=== PATIENT | female | born 1960 | race Hispanic/Latino ===

== ENCOUNTER 2018-01-08 20:35 | Emergency (ER) | payer OTHER ==
[~2018-01-08] VITALS: Ht 162.6 cm; Wt 77.1 kg
--- OUTSIDE RECORDS SUMMARY | 2018-01-08 20:38 | XMS REPORT ---
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 Active Problem HTN (hypertension), benign I10 Active Problem Venous insufficiency (chronic) (peripheral) I87.2 Active Assessment HTN (hypertension), benign I10 Active Assessment Type 1 diabetes mellitus without complication E10.9 Active Assessment Abnormal electrocardiogram R94.31 Active Assessment Encounter for preprocedural cardiovascular examination Z01.810 Active Medications Medication Code System Code Instructions Start Date End Date Status Dosage Ativan [facility] 97322154719 2 MG Orally take 1 hour before procedure Apr 29, 2017 Active take 2 tabkets Above the knee commpression stockings NDC 0 20-30mm Apr 30, 2017 Active as directed Results No Known Results Summary Purpose eClinicalWorks Submission
--- OUTSIDE RECORDS SUMMARY | 2018-01-08 20:38 | XMS REPORT ---
Author Author Pat Meier Organization [employer] Address Unknown Phone Unavailable Care Team Providers Care Picture Painter Name Role Phone Pat Meier CP Unavailable Allergies No Known Allergies Problems Problem Type Condition Code Onset Dates Condition Status Assessment Abnormal electrocardiogram R94.31 Active Assessment Encounter for preprocedural cardiovascular examination Z01.810 Active Problem HTN (hypertension), benign I10 Active Assessment HTN (hypertension), benign I10 Active Assessment Type 1 diabetes mellitus without complication E10.9 Active Medications No Known Medications Results No Known Results Summary Purpose eClinicalWorks Submission
--- OUTSIDE RECORDS SUMMARY | 2018-01-08 20:38 | XMS REPORT ---
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
--- OUTSIDE RECORDS SUMMARY | 2018-01-08 20:38 | XMS REPORT ---
Author Author Pat Meier Organization [employer] Address Unknown Phone Unavailable Care Team Providers Care Parts Counter Salesperson Name Role Phone Pat Meier CP Unavailable [...] Start Date End Date Status Dosage Ativan [facility] 84589665789 2 MG Orally take 1 hour before procedure Apr 29, 2017 Active take 2 tabkets Results No Known Results Summary Purpose eClinicalWorks Submission
--- OUTSIDE RECORDS SUMMARY | 2018-01-08 20:38 | XMS REPORT ---
Author Author Pat Meier Organization [employer] Address Unknown Phone Unavailable Care Team Providers Care Button Attaching Machine Operator Name Role Phone Pat Meier CP Unavailable [...] Start Date End Date Status Dosage Ativan [facility] 31022779745 2 MG Orally take 1 hour before procedure Apr 29, 2017 Active take 2 tabkets Above the knee commpression stockings NDC 0 20-30mm Apr 30, 2017 Active as directed Results No Known Results Summary Purpose eClinicalWorks Submission
--- OUTSIDE RECORDS SUMMARY | 2018-01-08 20:38 | XMS REPORT ---
Author Author Pat Meier Organization [employer] Address Unknown Phone Unavailable Care Team Providers Care Construction Recruiter Name Role Phone Pat Meier CP Unavailable Allergies, Adverse Reactions, Alerts Substance Reaction Event Type N.K.D.A. Info Not Available Non Drug Allergy Problems Problem Type Condition Code Onset Dates Condition Status Assessment Abnormal electrocardiogram R94.31 Active Assessment Encounter for preprocedural cardiovascular examination Z01.810 Active Problem HTN (hypertension), benign I10 Active Assessment HTN (hypertension), benign I10 Active Assessment Type 1 diabetes mellitus without complication E10.9 Active Medications Medication Code System Code Instructions Start Date End Date Status Dosage Telmisartan-HCTZ [facility] [address]-54 40-12.5 MG Orally Once a day Active 1 tablet Metformin HCl [facility] [address]-05 500 MG Orally Twice a day Active 1 tablet with meals Vital Signs Date/Time: August 27, 2016 BMI 43.74 Index Weight 224 lbs Height 5'4' in Cardiac Monitoring Heart Rate 63 /min Blood Pressure Diastolic 80 mm Hg Blood Pressure Systolic 132 mm Hg Results No Known Results Summary Purpose eClinicalWorks Submission
--- OUTSIDE RECORDS SUMMARY | 2018-01-08 20:38 | XMS REPORT ---
Author Author Pat Meier Organization [employer] Address Unknown Phone Unavailable Care Team Providers Care Plastic Sheets Supervisor Name Role Phone Pat Meier CP Unavailable [...] Date End Date Status Dosage Ativan [facility] 76377636166 2 MG Orally take 1 hour before procedure Apr 29, 2017 Active take 2 tabkets Above the knee commpression stockings NDC 0 20-30mm Apr 30, 2017 Active as directed Vital Signs Date/Time: June 23, 2017 BMI 33.39 Index Weight 171 lbs Height 5'4' in Cardiac Monitoring Heart Rate 64 /min Blood Pressure Diastolic 78 mm Hg Blood Pressure Systolic 140 mm Hg Results No Known Results Summary Purpose eClinicalWorks Submission
--- OUTSIDE RECORDS SUMMARY | 2018-01-08 20:38 | XMS REPORT ---
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
--- OUTSIDE RECORDS SUMMARY | 2018-01-08 20:38 | XMS REPORT | Continuity of Care Document ---
Author Author [facility] Interface Address Unknown Phone Unavailable Problems Problem Status Onset Date Classification Date Reported Comments Source Varicose veins of bilateral lower extremities with other complications Active Diagnosis 06/25/2017 [facility] Venous insufficiency (peripheral) Active Diagnosis 06/25/2017 [facility] HTN , benign Active Problem 06/25/2017 [facility] Type 1 diabetes mellitus without complication Active Diagnosis 06/25/2017 [facility] Abnormal electrocardiogram Active Diagnosis 06/25/2017 [facility] Encounter for preprocedural cardiovascular examination Active Diagnosis 06/25/2017 [facility] Medications Medication Details Route Status Patient Instructions Ordering Provider Order Date Source Above the knee commpression stockings as directed NA Active 20- 30mm Renea 04/30/2017 [facility] Ativan take 2 tabkets Orally Active 2 MG Orally take 1 hour before procedure Renea 04/29/2017 [facility] Telmisartan-HCTZ 1 tablet Orally Active 40-12.5 MG Orally Once a day [facility] Metformin HCl 1 tablet with meals Orally Active 500 MG Orally Twice a day [facility] Telmisartan-HCTZ 1 tablet Orally Active 40-12.5 MG Orally Once a day [facility] Metformin HCl 1 tablet with meals Orally Active 500 MG Orally Twice a day [facility] Allergies, Adverse Reactions, Alerts Substance Category Reaction Severity Reaction type Status Date Reported Comments Source N.K.D.A. Adverse Reaction Info Not Available Adverse Reaction Active 06/23/2017 [facility] Immunizations Immunization Date Given Site Status Last Updated Comments Source Results Order Name Results Value Reference Range Date Interpretation Comments Source Vital Signs Vital Sign Value Date Comments Source Weight 171 06/23/2017 [facility] Heart Rate 64 06/23/2017 [facility] Diastolic (mm Hg) 78 06/23/2017 [facility] Systolic (mm Hg) 140 06/23/2017 [facility] Weight 176 04/02/2017 [facility] Heart Rate 67 04/02/2017 [facility] Diastolic (mm Hg) 62 04/02/2017 [facility] Systolic (mm Hg) 122 04/02/2017 [facility] Weight 182 02/13/2017 [facility] Heart Rate 66 02/13/2017 [facility] Diastolic (mm Hg) 62 02/13/2017 [facility] Systolic (mm Hg) 118 02/13/2017 [facility] Weight 219 10/14/2016 [facility] Heart Rate 66 10/14/2016 [facility] Diastolic (mm Hg) 78 10/14/2016 [facility] Systolic (mm Hg) 142 10/14/2016 [facility] Weight 224 08/27/2016 [facility] Heart Rate 63 08/27/2016 [facility] Diastolic (mm Hg) 80 08/27/2016 [facility] Systolic (mm Hg) 132 08/27/2016 [facility] Encounters Location Location Details Encounter Type Encounter Number Reason For Visit Attending Provider ADM Date DC Date Status Source Procedures Procedure Code Date Perfomer Comments Source
--- OUTSIDE RECORDS SUMMARY | 2018-01-08 20:38 | XMS REPORT ---
Author Author Pat Meier Organization [employer] Address Unknown Phone Unavailable Care Team Providers Care Chiropractic Teacher Name Role Phone Pat Meier CP Unavailable [...] Start Date End Date Status Dosage Telmisartan-HCTZ [facility] 21934476951 40-12.5 MG Orally Once a day Active 1 tablet Metformin HCl [facility] 62165863692 500 MG Orally Twice a day Active 1 tablet with meals Vital Signs Date/Time: Feb 13, 2017 BMI 35.54 Index Weight 182 lbs Height 5'4' in Cardiac Monitoring Heart Rate 66 /min Blood Pressure Diastolic 62 mm Hg Blood Pressure Systolic 118 mm Hg Results No Known Results Summary Purpose eClinicalWorks Submission
--- OUTSIDE RECORDS SUMMARY | 2018-01-08 20:38 | XMS REPORT ---
Author Author Pat Meier Organization [employer] Address Unknown Phone Unavailable Care Team Providers Care Aircraft Engine Mechanic Supervisor Name Role Phone Pat Meier CP [...] Date End Date Status Dosage Ativan [facility] 47351095217 2 MG Orally take 1 hour before procedure Apr 29, 2017 Active take 2 tabkets Above the knee commpression stockings NDC 0 20-30mm Apr 30, 2017 Active as directed Results No Known Results Summary Purpose eClinicalWorks Submission
--- OUTSIDE RECORDS SUMMARY | 2018-01-08 20:38 | XMS REPORT ---
Author Author Pat Meier Organization [employer] Address Unknown Phone Unavailable Care Team Providers Care Rehab Technician Name Role Phone Pat Meier CP Unavailable [...]
--- OUTSIDE RECORDS SUMMARY | 2018-01-08 20:38 | XMS REPORT ---
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
--- OUTSIDE RECORDS SUMMARY | 2018-01-08 20:38 | XMS REPORT ---
Author Author Pat Meier Organization [employer] Address Unknown Phone Unavailable Care Team Providers Care Dredge Operator Name Role Phone Pat Meier CP [...] Instructions Start Date End Date Status Dosage Metformin HCl [facility] 65684440745 500 MG Orally Twice a day Active 1 tablet with meals Telmisartan-HCTZ [facility] 36901066363 40-12.5 MG Orally Once a day Active 1 tablet Vital Signs Date/Time: Apr 02, 2017 BMI 34.37 Index Weight 176 lbs Height 5'4' in Cardiac Monitoring Heart Rate 67 /min Blood Pressure Diastolic 62 mm Hg Blood Pressure Systolic 122 mm Hg Results No Known Results Summary Purpose eClinicalWorks Submission
--- OUTSIDE RECORDS SUMMARY | 2018-01-08 20:38 | XMS REPORT ---
Author Author Pat Meier Organization [employer] Address Unknown Phone Unavailable Care Team Providers Care Companion Name Role Phone Pat Meier CP Unavailable [...] Date End Date Status Dosage Telmisartan-HCTZ [facility] [address]-15 40-12.5 MG Orally Once a day Active 1 tablet Metformin HCl [facility] [address]-86 500 MG Orally Twice a day Active 1 tablet with meals Vital Signs Date/Time: Oct 14, 2016 BMI 42.77 Index Weight 219 lbs Height 5'4' in Cardiac Monitoring Heart Rate 66 /min Blood Pressure Diastolic 78 mm Hg Blood Pressure Systolic 142 mm Hg Results No Known Results Summary Purpose eClinicalWorks Submission
--- OUTSIDE RECORDS SUMMARY | 2018-01-08 20:38 | XMS REPORT ---
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
[2018-01-08] MEDS ORDERED: SODIUM CHLORIDE 0.9% 1000ML 1,000 ML IV STA (21:23)
[2018-01-08] MEDS ORDERED: ASPIRIN 81 MG CHEW TAB PO ONE (21:30)
[2018-01-08] MEDS ORDERED: MORPHINE SULFATE INJ 4 MG/ML INJ IV ONE (21:30)
[2018-01-08] MEDS ORDERED: ONDANSETRON HCL INJ 2 MG/ML VIAL IV ONE (21:40)
[2018-01-08 22:24] LABS: BASOPHILS % 0.2 % (0.0-1.0); EOSINOPHILS # (AUTO) 0.2 (0.0-0.4); EOSINOPHILS % 1.9 % (0.0-6.0); HEMATOCRIT 44.6 % (34.2-44.1); HEMOGLOBIN 14.4 g/dL (12.0-16.0); LYMPHOCYTES # (AUTO) 2.2 (1.0-3.2); LYMPHOCYTES % 17.7 % (18.0-39.1); MEAN CORPUSCULAR HEMOGLOBIN 29.4 pg (28-32); MEAN CORPUSCULAR HGB CONC 32.3 g/dL (31-35); MEAN CORPUSCULAR VOLUME 91.2 fL (81-99); MONOCYTES # (AUTO) 0.6 (0.2-0.8); MONOCYTES % 4.6 % (4.4-11.3); NEUTROPHILS # (AUTO) 9.2 (2.1-6.9); NEUTROPHILS % 75.3 % (38.7-80.0); PLATELET COUNT 161 x10e3/uL (140-360); RED BLOOD COUNT 4.89 x10e6/uL (3.6-5.1)
[2018-01-08 22:33] LABS: CLARITY,URINE HAZY (CLEAR); COLOR,URINE YELLOW (YELLOW)
[2018-01-08 22:34] LABS: BILIRUBIN,URINE NEGATIVE (NEGATIVE); KETONES,URINE NEGATIVE (NEGATIVE); LEUKOCYTE ESTERASE ,URINE NEGATIVE (NEGATIVE); NITRITE,URINE NEGATIVE (NEGATIVE); PROTEIN,URINE DIPSTICK NEGATIVE (NEGATIVE); URINE UROBILINOGEN 0.2 mg/dL (0.2 - 1)
[2018-01-08 22:37] LABS: AMORPHOUS SEDIMENT,URINE FEW (FEW); BACTERIA,URINE FEW /HPF; EPITHELIAL CELLS,URINE FEW /LPF; RBC,URINE 0-5 /HPF (0-5); WBC,URINE (MAN) 0-5 /HPF (0-5)
[2018-01-08 22:40] LABS: ALANINE AMINOTRANSFERASE 21 IU/L (0-55); ALBUMIN 4.5 g/dL (3.5-5.0); ALBUMIN/GLOBULIN RATIO 1.6 (0.8-2.0); ALKALINE PHOSPHATASE 64 IU/L (40-150); ANION GAP 17.8 mmol/L (8-16); BLOOD UREA NITROGEN 14 mg/dL (7-26); BUN/CREATININE RATIO 16 (6-25); CALCIUM 9.9 mg/dL (8.4-10.2); CARBON DIOXIDE 26 mmol/L (22-29); CHLORIDE 104 mmol/L (98-107); CREATINE KINASE 107 IU/L (29-168); CREATININE, SERUM 0.89 mg/dL (0.57-1.11); EST GLOMERULAR FILTRATION RATE > 60 ML/MIN (60-); GLUCOSE 155 mg/dL (74-118); LIPASE 46 U/L (8-78); POTASSIUM 3.8 mmol/L (3.5-5.1); SODIUM 144 mmol/L (136-145)
[2018-01-08] MEDS ORDERED: IOPAMIDOL 370 MG/ML 200 ML INFUS..BTL INJ ONE (23:26)
[2018-01-08] MEDS ORDERED: SODIUM CHLORIDE 0.9% 50ML 50 ML ONE (23:26)
--- NOTE | 2018-01-09 00:02 | Diagnostic Imaging Report ---
EXAM: CT ABDOMEN AND PELVIS with IV CONTRAST INDICATION: Right upper quadrant epigastric pain COMPARISON: None TECHNIQUE: The abdomen and pelvis were scanned using a multidetector helical scanner. Coronal and sagittal reformations were obtained. Dose modulation, iterative reconstruction, and/or weight based adjustment of the mA/kV was utilized to reduce the radiation dose to as low as reasonably achievable. Routine protocol performed. IV Contrast: 100 cc Isovue 370 Oral Contrast: Water FINDINGS: LOWER THORAX: No consolidations LIVER: Subcentimeter hypodensities consistent with cysts. BILIARY: The gallbladder is unremarkable. No ductal dilation. SPLEEN: No masses PANCREAS: No masses ADRENALS: No nodules KIDNEYS: Symmetric perfusion. No enhancing masses. No hydronephrosis. GI TRACT: No distention, wall thickening or evidence of obstruction. Surgical changes of the stomach. Normal appendix. VESSELS: Unremarkable PERITONEUM/RETROPERITONEUM: No free air or fluid LYMPH NODES: No lymphadenopathy REPRODUCTIVE ORGANS: Endometrial canal thickening to 1.2 cm. BLADDER: Unremarkable SOFT TISSUES: Unremarkable BONES: No suspicious bone lesions. IMPRESSION: 1. No CT findings to explain patient's symptoms. 2. Thickened endometrium for a postmenopausal female. A nonemergent pelvic ultrasound is recommended as follow-up. Signed by: Dr. Deena Barney M.D. on 01/08/2018 11:59 PM
[2018-01-09] MEDS ORDERED: KETOROLAC TROMETHAMINE 30 MG/ML VIAL ONE (01:08)
[2018-01-09] MEDS ORDERED: ACETAMINOPHEN 325 MG TAB ONE (01:08)
[2018-01-09] MEDS ORDERED: LIDOCAINE VISC 2% SOLN 15 ML UDC ONE (01:08)
[2018-01-09] MEDS ORDERED: BELLADONNA ALK/PHENOBARBITAL 5 ML UDC ONE (01:09)
[2018-01-09] MEDS ORDERED: MAGNESIUM/ALUMINUM/SIMETHICONE 30 ML UDC ONE (01:09)
[2018-01-09] MEDS ORDERED: CLONIDINE HCL 0.1 MG TAB ONE (01:15)
[2018-01-09] MEDS ORDERED: KETOROLAC TROMETHAMINE 30 MG/ML VIAL IV STA (01:18)
[2018-01-09] MEDS ORDERED: CLONIDINE HCL 0.1 MG TAB PO ONE (01:30)
[2018-01-09] MEDS ORDERED: ACETAMINOPHEN 325 MG TAB PO ONE (01:30)
[2018-01-09 01:55] VITALS: BP 153/84
[2018-01-09] MEDS ORDERED: DONNATAL/LIDOCAINE/MAALOX 30 ML SUSP PO ONE (09:00)
== END 2018-01-09 01:56 | disposition home or self-care (01) ==
LOC: ER 20:35
DX: R10.13 Epigastric pain (principal); R11.2 Nausea with vomiting, unspecified
CPT/HCPCS: 36415; 74177; 80053; 81001; 82550; 82553; 83690; 84484; 85025; 96374; 99284; J1885; J2405; J7030; Q9967; J2270

== ENCOUNTER 2018-02-04 11:05 | Inpatient (IN) | payer OTHER ==
[2018-01-28 13:16] LABS: BASOPHILS % 0.4 % (0.0-1.0); EOSINOPHILS # (AUTO) 0.2 (0.0-0.4); EOSINOPHILS % 2.6 % (0.0-6.0); HEMATOCRIT 41.1 % (34.2-44.1); HEMOGLOBIN 12.7 g/dL (12.0-16.0); LYMPHOCYTES # (AUTO) 2.1 (1.0-3.2); LYMPHOCYTES % 26.6 % (18.0-39.1); MEAN CORPUSCULAR HGB CONC 30.9 g/dL (31-35); MEAN CORPUSCULAR VOLUME 93.8 fL (81-99); MONOCYTES # (AUTO) 0.6 (0.2-0.8); NEUTROPHILS # (AUTO) 4.9 (2.1-6.9); PLATELET COUNT 212 x10e3/uL (140-360); RED BLOOD COUNT 4.38 x10e6/uL (3.6-5.1); RED CELL DISTRIBUTION WIDTH 12.9 % (11.7-14.4)
[2018-01-28 13:35] LABS: ALANINE AMINOTRANSFERASE 28 IU/L (0-55); ALBUMIN 3.7 g/dL (3.5-5.0); ALBUMIN/GLOBULIN RATIO 1.1 (0.8-2.0); ALKALINE PHOSPHATASE 71 IU/L (40-150); ANION GAP 14.4 mmol/L (8-16); BLOOD UREA NITROGEN 10 mg/dL (7-26); BUN/CREATININE RATIO 14 (6-25); CALCIUM 10.4 mg/dL (8.4-10.2); CARBON DIOXIDE 31 mmol/L (22-29); CHLORIDE 107 mmol/L (98-107); CREATININE, SERUM 0.73 mg/dL (0.57-1.11); EST GLOMERULAR FILTRATION RATE > 60 ML/MIN (60-); GLUCOSE 98 mg/dL (74-118); POTASSIUM 4.4 mmol/L (3.5-5.1); SODIUM 148 mmol/L (136-145)
[~2018-02-04] VITALS: Ht 162.6 cm; Wt 78.0 kg
--- OUTSIDE RECORDS SUMMARY | 2018-02-04 11:11 | XMS REPORT ---
Author [facility] Address Unknown Phone Unavailable Care Team Providers Care Industrial Maintenance Technician Name Role Phone Kristin ESPOSITO Unavailable Unavailable Problems This patient has no known problems. Allergies, Adverse Reactions, Alerts This patient has no known allergies or adverse reactions. Medications This patient has no known medications. Results Test Description Test Time Test Comments Text Results Atomic Results Result Comments CT ABDOMEN/PELVIS W 2018-01-08 23:46:00 [place] [address] Patient Name: JESU SHELDON MR #: [id number] : 1960 Age/Sex: 57/F Req #: [id number] [facility] Physician: Ordered by: PADDY ESPOSITO MD Report #: [id number] Location: ER Room/Bed: Procedure: [id number] CT/CT ABDOMEN/PELVIS W Exam Date: 01/08/18 Exam Time: 2334 REPORT STATUS: Signed EXAM: CT ABDOMEN AND PELVIS with IV CONTRAST INDICAT ION: Right upper quadrant epigastric pain COMPARISON: None TECHNIQUE: The abdomen and pelvis were scanned using a multidetector helical scanner. Coronal and sagittal reformations were obtained. Dose modulation, iterative reconstruction, and/or weight based adjustment of the mA/kV was utilized to reduce the radiation dose to as low as reasonably achievable. Routine protocol performed. IV Contrast: 100 cc Isovue 370 Oral Contrast: Water FINDINGS: LOWER THORAX: No consolidations LIVER: Subcentimeter hypodensities consistent with cysts. BILIARY: The gallbladder is unremarkable. No ductal dilation. SPLEEN: No masses PANCREAS: No masses ADRENALS: No nodules KIDNEYS: Symmetric perfusion. No enhancing masses. No hydronephrosis. GI TRACT: No distention, wall thickening or evidence of obstruction. Surgical changes of the stomach. Normal appendix. VESSELS: Unremarkable PERITONEUM/RETROPERITONEUM: No free air or fluid LYMPH NODES: No lymphadenopathy REPRODUCTIVE ORGANS: Endometrial canal thickening to 1.2 cm. BLADDER: Unremarkable SOFT TISSUES: Unremarkable BONES: No suspicious bone lesions. IMPRESSION: 1. No CT findings to explain patient's symptoms. 2. Thickened endometrium for a postmenopausal female. A nonemergent pelvic ultrasound is recommended as follow-up. Signed by: Dr. Eric Barney M.D. on 01/08/2018 11:59 PM Dictated By: ERIC BARNEY MD [id number] Transcribed By: CLIFF on 01/08/18 6731 COPY TO: PADDY ESPOSITO MD
--- OUTSIDE RECORDS SUMMARY | 2018-02-04 11:11 | XMS REPORT | Continuity of Care Document ---
Author Author [facility] Interface Address Unknown Phone Unavailable Problems Problem Status Onset Date Classification Date Reported Comments Source Abnormal electrocardiogram Active Diagnosis 06/25/2017 [facility] Encounter for preprocedural cardiovascular examination Active Diagnosis 06/25/2017 [facility] HTN , benign Active Problem 06/25/2017 [facility] Type 1 diabetes mellitus without complication Active Diagnosis 06/25/2017 [facility] Varicose veins of bilateral lower extremities with other complications Active Diagnosis 06/25/2017 [facility] Venous insufficiency (peripheral) Active Diagnosis 06/25/2017 [facility] Medications Medication [...]
[2018-02-04] MEDS ORDERED: CEFOXITIN SOD 1 GM VIAL ONE (11:39)
[2018-02-04] MEDS ORDERED: BUPIVACAINE 0.25%/EPI 30ML SDV INJ ONE (13:35)
[2018-02-04] MEDS ORDERED: HYDROMORPHONE 1MG/1ML INJ IV PRN (17:30)
[2018-02-04] MEDS: LACTATED RINGER'S 1,000 ML IV SCH ×2 (17:30→23:58)
[2018-02-04] MEDS ORDERED: FENTANYL CITRATE/PF 100MCG/2 ML INJ ONE ×2 (17:38→19:35)
[2018-02-04] MEDS ORDERED: ONDANSETRON HCL INJ 2 MG/ML VIAL ONE ×2 (17:40→19:35)
[2018-02-04] MEDS ORDERED: METOCLOPRAMIDE HCL 10 MG/2ML VIAL ONE (17:40)
[2018-02-04] MEDS ORDERED: HYDROMORPHONE 2MG/ML 2 MG/ML ML IV PRN (17:45)
[2018-02-04] MEDS ORDERED: MEPERIDINE HCL INJ 50 MG/ML INJ ONE (17:53)
[2018-02-04] MEDS ORDERED: CEFOXITIN SOD 1 GM VIAL IV SCH (18:00)
[2018-02-04] MEDS ORDERED: CEFOXITIN 1GM/ NS 50ML 50 ML IV SCH (18:00)
[2018-02-04 18:35] VITALS: BP 166/85
--- NOTE | 2018-02-04 18:51 | Operative Report ---
DATE OF PROCEDURE: February 04, 2018 PREOPERATIVE DIAGNOSIS: Cholelithiasis and cholecystitis. POSTOPERATIVE DIAGNOSIS: Acute cholecystitis. OPERATIVE PROCEDURE: Laparoscopic cholecystectomy. ANESTHESIA: General endotracheal. INDICATIONS: The patient is a 57-year-old female with recurrent epigastric abdominal pain with ultrasound showing sludge and HIDA scan showed nonvisualization of the gallbladder. Patient consented for gallbladder removal by laparoscopy, possible open with all attendant risks discussed including bleeding, infection and organ injury. PROCEDURE FINDINGS: Multiple small gallstone with acute cholecystitis. DESCRIPTION OF PROCEDURE: The patient was brought to the OR and intubated. Abdomen prepped with alcohol and draped in sterile fashion. An infraumbilical incision is made and a 10-mm port inserted. Insufflation then begun. Under direct vision, other port sites placed in the mid-epigastric and right upper quadrant. Gallbladder covered by omentum, and this is bluntly dissected off. A very acutely inflamed gallbladder with distention requiring decompression first with a needle. The fundus was retracted in the cephalad direction, and the neck of the gallbladder retracted laterally. Due to severe inflammation at the neck of the gallbladder, we proceeded to remove the gallbladder fundus from the liver in a retrograde fashion, working from the fundus down toward the neck of the gallbladder where the cystic duct is identified and controlled with an Endo loop, 0 PDS and the cystic duct is divided above the loops tied. The gallbladder contained multiple small to medium sized mulberry stones, at least 100 or more, which were all removed along with the gallbladder in an Endo pouch out of the peritoneal cavity, which was then irrigated. Hemostasis achieved and a 19-[place] Armando drain was placed in the Mason pouch and taken out through right upper quadrant port site. All ports removed under direct vision. Fascial closure with 0 Vicryl. Skin closed with subcuticular stitch. Patient was extubated and transported to the recovery room. Estimated blood loss 10 mL. Job#: [id number]
[2018-02-04] MEDS ORDERED: LIDOCAINE HCL 2% LOCAL INJ 5 ML SDV VIAL INJ ONE (19:35)
[2018-02-04] MEDS ORDERED: ROCURONIUM BROMIDE 10 MG/ML 5ML VIAL ONE (19:35)
[2018-02-04] MEDS ORDERED: MIDAZOLAM HCL 2 MG/2 ML VIAL ONE (19:35)
[2018-02-04] MEDS ORDERED: DEXAMETHASONE SOD PHOS INJ 4 MG/ML VIAL ONE (19:35)
[2018-02-04] MEDS ORDERED: PROPOFOL IV EMULSION 10 MG/ML 20 ML VIAL ONE (19:35)
[2018-02-04] MEDS ORDERED: SEVOFLURANE INHAL SOLN 250 ML PEN BTL ONE (19:35)
[2018-02-04 20:00] VITALS: BP 134/73
[2018-02-04 20:05] VITALS: BP 134/73
[2018-02-04] MEDS: CEFOXITIN SOD 1 GM VIAL IV SCH (20:10)
[2018-02-04] MEDS: HYDROMORPHONE 2MG/ML 2 MG/ML ML IV PRN (20:15)
[2018-02-04 23:15] VITALS: BP 134/73
[2018-02-05] VITALS (8 sets, daily range): BP systolic 132–150; BP diastolic 79–84
[2018-02-05] MEDS: CEFOXITIN SOD 1 GM VIAL IV SCH ×5 (00:48→23:47)
[2018-02-05] MEDS: ONDANSETRON HCL INJ 2 MG/ML VIAL IV PRN ×5 (00:48→23:47)
[2018-02-05] MEDS: HYDROMORPHONE 2MG/ML 2 MG/ML ML IV PRN ×2 (04:46→10:15)
[2018-02-05 05:56] LABS: BASOPHILS % 0.1 % (0.0-1.0); EOSINOPHILS % 0.1 % (0.0-6.0); HEMATOCRIT 38.5 % (34.2-44.1); HEMOGLOBIN 12.6 g/dL (12.0-16.0); LYMPHOCYTES # (AUTO) 1.7 (1.0-3.2); LYMPHOCYTES % 11.5 % (18.0-39.1); MEAN CORPUSCULAR HEMOGLOBIN 29.6 pg (28-32); MEAN CORPUSCULAR HGB CONC 32.7 g/dL (31-35); MEAN CORPUSCULAR VOLUME 90.4 fL (81-99); MONOCYTES # (AUTO) 0.9 (0.2-0.8); MONOCYTES % 6.1 % (4.4-11.3); NEUTROPHILS # (AUTO) 11.8 (2.1-6.9); NEUTROPHILS % 81.9 % (38.7-80.0); PLATELET COUNT 187 x10e3/uL (140-360); RED BLOOD COUNT 4.26 x10e6/uL (3.6-5.1); RED CELL DISTRIBUTION WIDTH 13.2 % (11.7-14.4)
[2018-02-05 06:28] LABS: ALANINE AMINOTRANSFERASE 35 IU/L (0-55); ALBUMIN 3.6 g/dL (3.5-5.0); ALBUMIN/GLOBULIN RATIO 1.2 (0.8-2.0); ALKALINE PHOSPHATASE 62 IU/L (40-150); ANION GAP 13.1 mmol/L (8-16); BLOOD UREA NITROGEN 12 mg/dL (7-26); BUN/CREATININE RATIO 17 (6-25); CALCIUM 9.6 mg/dL (8.4-10.2); CARBON DIOXIDE 25 mmol/L (22-29); CHLORIDE 102 mmol/L (98-107); CREATININE, SERUM 0.69 mg/dL (0.57-1.11); EST GLOMERULAR FILTRATION RATE > 60 ML/MIN (60-); GLUCOSE 164 mg/dL (74-118); POTASSIUM 4.1 mmol/L (3.5-5.1); SODIUM 136 mmol/L (136-145)
--- NOTE | 2018-02-05 10:55 | Consultation ---
DATE OF CONSULTATION: PCP: Dr. Berto Hernandez CHIEF COMPLAINT: Acute cholecystitis. Patient is status post laparoscopic cholecystectomy. SUMMARY: Patient is a 57-year-old female with acute cholecystitis. The patient had some abdominal pain early in January, but she did not think that it was from the gallbladder and ongoing pain. The patient also developed nausea and vomiting. Patient subsequently underwent cholecystectomy by Dr. Evan Mccormick. The patient is stable at this time. She is comfortable. She does have a drain in place. The patient had no chest pain and no shortness of breath. PAST MEDICAL HISTORY: Noncontributory. SOCIAL HISTORY: Patient does not smoke or use alcohol. No recreational drug use. ALLERGIES: MORPHINE. HOME MEDICATIONS: Not available. REVIEW OF SYSTEMS: Some pain postop appropriately. No nausea or vomiting. PHYSICAL EXAMINATION: VITAL SIGNS: Temperature is 97, blood pressure 150/81, pulse rate is 91, respirations 18. GENERAL: The patient is not in acute distress. She is awake. HEENT: Normocephalic, atraumatic and anicteric. NECK: Supple grossly. PULMONARY: Diminished breath sounds without any wheezing or rales. CARDIOVASCULAR: S1 and S2. Regular rate and rhythm. ABDOMEN: Status post laparoscopic cholecystectomy. Drain in place. EXTREMITIES: No cyanosis or edema. NEUROLOGIC: No gross focal deficits. LABORATORY: Sodium is 136, potassium 4.5, chloride 102, bicarb 25, BUN 12, creatinine 0.6, glucose 164. WBC is 14.4, hemoglobin 12.6, hematocrit 38.5, and platelets are 187,000. IMPRESSION 1. Status post laparoscopic cholecystectomy. 2. Acute cholecystitis. 3. Slight elevation of blood sugar: Will monitor. 4. Slight increase in white blood cells: Will monitor. PLAN: Continue with current fluid intake and bariatric clear liquids. Increase activity as tolerated. Incentive spirometry. Monitor the BRIDGET tube output. Repeat lab work in the morning. Job#: [id number] [place]
[2018-02-05] MEDS: LACTATED RINGER'S 1,000 ML IV SCH (12:30)
[2018-02-05] MEDS: HYDROCODONE/APAP 7.5MG-325MG 1 EA TAB PO PRN ×2 (14:56→19:20)
[2018-02-06] VITALS (7 sets, daily range): BP systolic 123–151; BP diastolic 71–83
[2018-02-06] MEDS: LACTATED RINGER'S 1,000 ML IV SCH ×2 (00:15→12:07)
[2018-02-06] MEDS: CEFOXITIN SOD 1 GM VIAL IV SCH ×4 (05:30→23:29)
[2018-02-06] MEDS: ONDANSETRON HCL INJ 2 MG/ML VIAL IV PRN ×3 (05:30→21:53)
[2018-02-06 05:52] LABS: BASOPHILS % 0.1 % (0.0-1.0); EOSINOPHILS # (AUTO) 0.2 (0.0-0.4); HEMATOCRIT 36.8 % (34.2-44.1); HEMOGLOBIN 11.7 g/dL (12.0-16.0); LYMPHOCYTES # (AUTO) 1.9 (1.0-3.2); LYMPHOCYTES % 25.4 % (18.0-39.1); MEAN CORPUSCULAR HEMOGLOBIN 29.3 pg (28-32); MEAN CORPUSCULAR HGB CONC 31.8 g/dL (31-35); MONOCYTES # (AUTO) 0.7 (0.2-0.8); MONOCYTES % 9.8 % (4.4-11.3); NEUTROPHILS # (AUTO) 4.6 (2.1-6.9); NEUTROPHILS % 62.4 % (38.7-80.0); PLATELET COUNT 152 x10e3/uL (140-360); RED CELL DISTRIBUTION WIDTH 13.3 % (11.7-14.4)
[2018-02-06 06:16] LABS: ANION GAP 12.9 mmol/L (8-16); BLOOD UREA NITROGEN 8 mg/dL (7-26); BUN/CREATININE RATIO 10 (6-25); CALCIUM 9.2 mg/dL (8.4-10.2); CARBON DIOXIDE 27 mmol/L (22-29); CHLORIDE 105 mmol/L (98-107); CREATININE, SERUM 0.79 mg/dL (0.57-1.11); EST GLOMERULAR FILTRATION RATE > 60 ML/MIN (60-); GLUCOSE 90 mg/dL (74-118); POTASSIUM 3.9 mmol/L (3.5-5.1); SODIUM 141 mmol/L (136-145)
[2018-02-06] MEDS: HYDROCODONE/APAP 7.5MG-325MG 1 EA TAB PO PRN ×4 (08:09→21:53)
[2018-02-07] VITALS: BP 122/60
[2018-02-07] MEDS: HYDROCODONE/APAP 7.5MG-325MG 1 EA TAB PO PRN ×2 (02:48→09:53)
[2018-02-07 04:00] VITALS: BP 123/60
[2018-02-07] MEDS: ONDANSETRON HCL INJ 2 MG/ML VIAL IV PRN ×2 (05:26→12:09)
[2018-02-07] MEDS: CEFOXITIN SOD 1 GM VIAL IV SCH ×2 (05:26→12:09)
[2018-02-07 07:52] VITALS: BP 115/65
[2018-02-07 09:54] VITALS: BP 115/65
[2018-02-07] MEDS ORDERED: NORCO 7.5-3251 EACH PO (10:32)
[2018-02-07] MEDS ORDERED: LEVAQUIN500 MG PO (10:33)
[2018-02-07] MEDS ORDERED: ZOFRAN4 MG PO (10:34)
[2018-02-07 11:48] VITALS: BP 142/78
--- NOTE | 2018-02-07 23:59 | Discharge Summary ---
NO DICTATION (00:16) Job#: [id number] [facility]
--- NOTE | 2018-02-09 09:19 | Discharge Summary ---
PRIMARY CARE PHYSICIAN: Dr. Marcy Muñoz. MOVIE STUNT PERFORMER: Dr. Jair Castro. FINAL DIAGNOSES 1. Acute cholecystitis. 2. Status post laparoscopic cholecystectomy. 3. Pain, improved. 4. Fever, resolved. SUMMARY: A 57-year-old female with acute cholecystitis. Patient came in with gallbladder stone associated with significant infection. Patient placed on antibiotics and subsequently underwent laparoscopic cholecystectomy. Patient is doing much better now. She is stable. WBC was elevated on admission but now is 7.4. Hemoglobin and hematocrit are stable at 11.7 and 36.8 respectively. BUN and creatinine 8 and 0.8 respectively. Patient is stable. She had a BRIDGET tube in place. She tolerated all her diet. The patient will go home on Levaquin 5 mg daily for 5 days, [place] 7.5/325 mg q.6h. as needed for pain, Zofran 4 mg sublingual q.4h. p.r.n. for nausea and vomiting, and Colace 1 mg twice a day. Patient is stable. Follow up with Dr. Evan Mccormick next week for BRIDGET tube removal. Patient is stable, discharge home today. Job#: [id number] AVIS CC:DR. MARCY MUÑOZ
== END 2018-02-07 12:54 | disposition home or self-care (01) | DRG 419 ==
LOC: OR 11:05 → PACU V 17:34 → MED/SURG 18:19
PROVIDERS: ADMIT Surgery; ATTEND Surgery
PROC: 0FT44ZZ Resection of Gallbladder, Percutaneous Endoscopic Approach (ICD-10-PCS; principal; 2018-02-04 14:57)
DX: K80.00 Calculus of gallbladder with acute cholecystitis without obstruction (principal); Z88.5 Allergy status to narcotic agent; Z98.84 Bariatric surgery status; Z83.3 Family history of diabetes mellitus; Z82.49 Family history of ischemic heart disease and other diseases of the circulatory system; R50.9 Fever, unspecified
CPT/HCPCS: 36415; 80048; 80053; 85025; 88304; 93005; J0694; J1100; J2001; J2175; J2250; J2405; J2765; J7120

== ENCOUNTER → 2018-02-25 | Outpatient (CLI) | payer OTHER ==
[~2018-02-25] MED LIST: LEVAQUIN500 MG PO; NORCO 7.5-3251 EACH PO; ZOFRAN4 MG PO
--- NOTE | 2018-02-25 11:01 | Diagnostic Imaging Report ---
EXAM: DXA BONE DENSITY INDICATIONS: Menopause COMPARISON: None. FINDINGS: Proximal left femur bone mineral density (BMD) (g/cm2):0.862 Femur T-score (standard deviation relative to young adult mean BMD): -0.7 Femur Z-score (standard deviation relative to age-matched control group):0.1 Lumbar bone mineral density (BMD) (g/cm2):0.971 Lumbar T-score (standard deviation relative to young adult mean BMD): -0.7 Lumbar Z-score (standard deviation relative to age-matched control group):0.6 Change since prior exam (%): Femur:Not applicable. Spine:Not applicable. Change since oldest prior exam (%): Femur:Not applicable. Spine:Not applicable. CONCLUSION: 1. Bone mineral density in the left femur is classified as normal. Fracture risk is not increased. 2. Bone mineral density in the spine is classified as normal. Fracture risk is not increased. World Health Organization Classification: *The Z-score is provided for informational purposes. The T-score is preferable for clinical decisions. When comparing exams, a change of >4% is considered statistically significant. SUGGESTED RECOMMENDATIONS: Normal & Osteopenia:Consideration should be given to use of calcium supplementation, daily multiple vitamins and adequate exercise, as preventive measures against osteoporosis, if clinically indicated. Osteoporosis & Severe Osteoporosis:In addition to the above, consideration should be given to medical therapy against osteoporosis, if clinically indicated. Constantin Onofre D.O. Dictated by: Constantin Onofre D.O. on 02/25/2018 at 11:12 Electronically approved by: Constantin Onofre D.O. on 02/25/2018 at 11:12
--- NOTE | 2018-03-16 08:38 | Diagnostic Imaging Report ---
#[id number] - [id number] #BILATERAL DIGITAL SCREENING MAMMOGRAM WITH CAD: 02/25/2018 CLINICAL: Routine screening. No prior exams were available for comparison. Current study contains 4 films. There are scattered fibroglandular elements in both breasts. Current study was also evaluated with a Computer Aided Detection (CAD) system. There are benign calcifications and an intramammary node in the right breast. No significant masses, calcifications, or other findings are seen in either breast. IMPRESSION: BENIGN There is no mammographic evidence of malignancy. A 1 year screening mammogram is recommended. The patient will be notified by letter of the results. Constantin hendrickson/racheal:03/16/2018 07:39:41 Activity Manager: Nessa ORTEZ)(M), [facility] letter sent: Normal Exam Mammogram BI-RADS: 2 Benign
== END ==
LOC: MAMMO 08:31
PROVIDERS: ATTEND Specialist
DX: Z12.31 Encounter for screening mammogram for malignant neoplasm of breast (principal); M81.0 Age-related osteoporosis without current pathological fracture; Z78.0 Asymptomatic menopausal state
CPT/HCPCS: 77067; 77080